=== PATIENT | male | born 1970 | race Caucasian/White ===

== ENCOUNTER 2025-05-05 11:34 | Emergency (ER) | payer OTHER ==
[~2025-05-05] VITALS: Ht 182.9 cm; Wt 92.9 kg
[2025-05-05 11:36] VITALS: BP 133/94; PULSE 85; RESP 16; TEMP 98.6; O2SAT 98
[2025-05-05] MEDS ORDERED: AMOX-117 PO (12:04)
[2025-05-05] MEDS ORDERED: IBUP-864 PO (12:04)
--- NOTE | 2025-05-05 12:04 | Physician Documentation ---
HPI ~ General Chief Complaint: Tooth Problem Stated Complaint: TOOTH PAIN Time Seen by MD: 11:57 Source: patient Mode of Arrival: POV Exam Limitations: no limitations History of Present Illness HPI Comment 54-year-old male with tooth pain possible infection to the left upper and right lower has multiple missing teeth. Patient does not have a dental appointment yet. Patient denies any difficulty breathing or swallowing Medication Reconciliation Allergies: Coded Allergies: No Known Allergies (Unverified , 05/05/25) Past Medical History Past Medical History: No Pertinent History Past Surgical History: noncontributory Alcohol Use: Rarely Lives with: Family Lives In: Home Occupation: employed Review of Systems All Other Systems at this time: Reviewed and Negative ENT: Reports: see HPI Physical Exam Vital Signs: RN Vital Signs have been reviewed: Yes, Temperature: 98.6, Source: Oral, Heart Rate: 85, Respiratory Rate: 16, BP: 133/94, Pulse Oximetry: 98, Weight: 92.900 Oxygen Flow Rate: 0 Physical Exam General: Alert, no apparent distress. HEENT: moist mucous membranes. Poor dentition multiple missing teeth no obvious abscess or fluctuance. No facial swelling Neck: Full range of motion. Respiratory: No respiratory distress speaking in full sentences Chest: No accessory muscle use. Cardiovascular: Appears well perfused Neurologic: Oriented x4. Psychiatric: Normal mood and affect. Skin: Normal color, warm and dry. No edema, no ecchymosis. Progress Results/Orders Results/Orders Vital Signs 05/05/25 11:36 Temp 98.6 Pulse 85 Resp 16 B/P (MAP) 133/94 Pulse Ox 98 O2 Flow Rate 0 Medical Decision Making Additional information obtaine: N/A Findings No obvious abscess multiple missing teeth advised about making a dental appointment no matter how far out it is antibiotics and ibuprofen prescribed Differential Dx:Considerations: Include: Alveolar fracture, ANUG, Facial Cellulitis, Periapical abscess, Peridontal abscess, Tooth Fracture, Other Departure Time of Disposition: 12:03 Disposition: 01 HOME / SELF CARE / HOMELESS Impression: Primary Impression: Toothache Condition: Stable Discharge Instructions: Dental Pain Additional Instructions: Take medication as prescribed and make an appointment with dentist RICK Referrals: NO PRIMARY CARE PROVIDER (PCP) Prescriptions Amox Tr/Potassium Clavulanate (Augmentin 875-125 Tablet) 1 Each Tablet 1 TAB PO Q12H for 10 Days, #20 TAB Prov: YANY,JANETTE K [employer] 05/05/25 Ibuprofen (Ibu) 800 Mg Tablet 1 TAB PO Q8H for 7 Days, #21 TAB 0 Refills Prov: JANETTE SLADE NP 05/05/25 Education Educated: Patient Educated regarding: diagnosis, treatment, need for follow up Signature Scribe Signature: No scribe Attestation: The note accurately reflects work and decisions made by me.Janette REDDY 05/05/25 12:04 JANETTE SLADE NP May 05, 2025 12:04
== END 2025-05-05 12:00 | disposition home or self-care (01) ==
LOC: ER 11:35
DX: K08.89 Other specified disorders of teeth and supporting structures (principal)
CPT/HCPCS: 99283